=== PATIENT | male | born 1955 | race African-American/Black ===

== ENCOUNTER 2019-09-13 14:32 | Emergency (ER) | payer MEDICAID, OTHER ==
[~2019-09-13] VITALS: Ht 185.4 cm; Wt 81.6 kg
--- NOTE | 2019-09-13 14:35 | NUR ---
PT CIERA FROM [facility] FOR PLACEMENT. PT IS COVID POSITIVE. PT IS AAOX3, NOT IN RESPIRATORY DISTRESS, HOOKED TO YOUTH SERVICES SPECIALIST, KEPT RESTED AND COMFORTABLE. WILL CONTINUE TO MONITOR.
--- NOTE | 2019-09-13 16:28 | NUR ---
ASSESSED PT ON BED AWAKE AND ALERT. NOT IN RESPIRATORY DISTRESS, V/S STABLE. KEPT RESTED AND COMFORTABLE. WILL CONTINUE TO MONITOR.
[2019-09-13] MEDS ORDERED: HYDR12.55 PO (19:06)
[2019-09-13] MEDS ORDERED: CHOL200010 PO (19:06)
[2019-09-13] MEDS ORDERED: TRAZ-252 MT (19:06)
[2019-09-13] MEDS ORDERED: ASPI-1420 PO (19:06)
[2019-09-13] MEDS ORDERED: LEVE500T20 PO (19:06)
[2019-09-13] MEDS ORDERED: ATOR80TA PO (19:06)
[2019-09-13] MEDS ORDERED: METO-358 PO (19:06)
[2019-09-13] MEDS ORDERED: AMLO10TA7 PO (19:06)
--- NOTE | 2019-09-13 19:07 | NUR ---
REPORT GIVEN TO YOVANI NGUYEN FOR [facility].
--- NOTE | 2019-09-13 19:25 | NUR ---
REPORT RECEIVED FROM CHANTAL HOUGH RN FOR [facility]
--- NOTE | 2019-09-13 19:50 | NUR ---
@ 1919: CALLED [phone] AND SPOKE WITH [facility] , PROVIDED ASKED INFORMATION REGARDING THE PATIENT, PER SOL SHE WILL HAVE THE INSPECTOR MATERIAL DISPOSITION CALL ME. @ 1941: RECEIVED A CALL FROM NANCY BROUSSARD CM [employer], CLINICALS PROVIDED VERBALLY, HE IS WORKING ON A TRANSFER TO OTHER HOSPITAL.
--- NOTE | 2019-09-13 20:26 | NUR ---
TRANSFER INFO: [facility] [id number] [id number] # FOR REPORT: [phone]
--- NOTE | 2019-09-13 20:35 | NUR ---
REPORT GIVEN TO YOVANI NAVARRETE FOR [facility]
--- NOTE | 2019-09-13 21:52 | NUR ---
[facility] CALL[facility] FOR BLS TRANSPORT. PENDING ETA Addendum: 09/13/19 at 2153 by CBATACLAN [facility] CALL[facility] FOR [facility]LS TRANSPORT. PENDING ETA. GREG # [id number]
--- NOTE | 2019-09-13 22:00 | NUR ---
[facility] ETA 90 MINUTES.
[2019-09-13] MEDS ORDERED: TRAZODONE 50 MG TABLET ONE (23:11)
[2019-09-13] MEDS ORDERED: METOPROLOL TARTRATE 50 MG TABLET ONE (23:21)
[2019-09-13] MEDS ORDERED: TRAZODONE 50 MG TABLET PO ONE (23:30)
[2019-09-13] MEDS ORDERED: METOPROLOL TARTRATE 25 MG TABLET PO ONE (23:30)
--- NOTE | 2019-09-13 23:45 | NUR ---
REPORT GIVEN TO EMS. PT STABLE FOR TRANSFER
[2019-09-13 23:47] VITALS: BP 135/80
== END 2019-09-13 23:48 ==
LOC: ER 14:36
DX: R05 Cough (principal); R53.83 Other fatigue; Z20.828 Contact with and (suspected) exposure to other viral communicable diseases; I69.351 Hemiplegia and hemiparesis following cerebral infarction affecting right dominant side; I10 Essential (primary) hypertension